=== PATIENT | female | born 1990 | race Caucasian/White ===

== ENCOUNTER 2020-01-21 21:32 | Emergency (ER) | payer BC, OTHER ==
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
[2020-01-21 22:43] VITALS: BP 128/85; PULSE 109
--- NOTE | 2020-01-21 22:58 | CR ---
Indication: Fall Technique: Single view of the pelvis Comparison: None Findings: No fracture is demonstrated. The femoral acetabular joints are anatomically aligned. Intrauterine device is noted. Impression: No acute abnormality. Dictated by Karla Chisholm MD @ Jan 21 2020 10:56PM Signed by Dr. Karla Chisholm @ Jan 21 2020 10:58PM
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
== END 2020-01-21 22:51 | disposition home or self-care (01) ==
LOC: MW.ED 21:32
DX: S60.221A Contusion of right hand, initial encounter (principal); F41.9 Anxiety disorder, unspecified; F32.9 Major depressive disorder, single episode, unspecified; Z88.8 Allergy status to other drugs, medicaments and biological substances; Z79.899 Other long term (current) drug therapy; W19.XXXA Unspecified fall, initial encounter; W22.8XXA Striking against or struck by other objects, initial encounter
CPT/HCPCS: 72170; 72170-26; 73130-26-RT; 73130-RT; 99283; 99283-25

== ENCOUNTER 2020-09-20 01:06 | Emergency (ER) | payer SELFPAY ==
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
[2020-09-20 04:46] VITALS: BP 132/64; PULSE 77
== END 2020-09-20 03:15 | disposition home or self-care (01) ==
LOC: MW.ED 01:06
DX: Z00.00 Encounter for general adult medical examination without abnormal findings (principal); F41.9 Anxiety disorder, unspecified; F32.9 Major depressive disorder, single episode, unspecified; Z79.899 Other long term (current) drug therapy; Z88.8 Allergy status to other drugs, medicaments and biological substances
CPT/HCPCS: 36415; 80307; 99282; 99284